=== PATIENT | female | born 1985 | race Two or more races ===

== ENCOUNTER 2020-10-01 08:38 | Emergency (ER) | payer MEDICAID ==
[~2020-10-01] VITALS: Ht 157.5 cm; Wt 90.7 kg
[2020-10-01 09:16] VITALS: BP 152/99
== END 2020-10-01 10:12 | disposition home or self-care (01) ==
LOC: ER 08:38
DX: S00.03XA Contusion of scalp, initial encounter (principal); M54.2 Cervicalgia; M54.5 Low back pain; M62.838 Other muscle spasm; Z88.8 Allergy status to other drugs, medicaments and biological substances; V89.2XXA Person injured in unspecified motor-vehicle accident, traffic, initial encounter; Y93.89 Activity, other specified; Y92.89 Other specified places as the place of occurrence of the external cause; Y99.8 Other external cause status
CPT/HCPCS: 70450; 72125; 72131